=== PATIENT | male | born 1945 | race Caucasian/White ===

== ENCOUNTER 2020-08-08 11:42 | Emergency (ER) | payer MEDICARE, OTHER ==
[2020-08-08] MEDS ORDERED: VIBRAMYCIN 100100 MG PO (14:43)
[2020-08-08] MEDS ORDERED: ZOFRAN4 MG PO (14:43)
== END 2020-08-08 15:03 | disposition home or self-care (01) ==
LOC: ER1 11:42
DX: U07.1 COVID-19 (principal)
CPT/HCPCS: 71045; 99283; U0002